=== PATIENT | male | born 1955 | race Caucasian/White ===

== ENCOUNTER → 2018-02-10 09:34 | Outpatient (CLI) | payer MEDICARE, SELFPAY ==
[2018-02-10 11:00] LABS: PSA,Total- Diagnostic 6.26 ng/mL (0.0-4.0)
== END ==
PROVIDERS: Family Provider Family Medicine; PCP Family Medicine; Visit Provider Urology
DX: N40.0 Benign prostatic hyperplasia without lower urinary tract symptoms (principal); E29.1 Testicular hypofunction
CPT/HCPCS: 36415; 84153; 84403

== ENCOUNTER → 2018-08-11 09:45 | Outpatient (CLI) | payer MEDICARE, SELFPAY ==
[2018-08-11 10:49] LABS: PSA,Total- Diagnostic 5.75 ng/mL (0.0-4.0)
== END ==
PROVIDERS: Family Provider Family Medicine; PCP Family Medicine; Referring Provider Urology; Visit Provider Urology
DX: R97.20 Elevated prostate specific antigen [PSA] (principal)
CPT/HCPCS: 36415; 84153

== ENCOUNTER → 2019-08-31 10:26 | Outpatient (CLI) | payer MEDICARE, SELFPAY ==
[2019-09-04 17:40] LABS: Testosterone, % Free 4.63 % (1.50-4.20); Testosterone, Total > 1500 ng/dL (264-916)
== END ==
LOC: LAB.FUTURE 10:28 → LAB 09-01 06:01
PROVIDERS: Family Provider Family Medicine; PCP Family Medicine; Referring Provider Urology; Visit Provider Urology
DX: E29.1 Testicular hypofunction (principal)
CPT/HCPCS: 36415; 84402; 84403

== ENCOUNTER → 2019-10-07 07:38 | Outpatient (CLI) | payer MEDICARE, SELFPAY | LOC: LAB.FUTURE 07:40 → LAB 07:42 | PROVIDERS: PCP Family Medicine; Referring Provider Urology; Visit Provider Urology | DX: E29.1 Testicular hypofunction (principal) | CPT/HCPCS: 36415; 84403 ==

== ENCOUNTER → 2020-09-04 11:55 | Outpatient (CLI) | payer MEDICARE, SELFPAY ==
[2020-09-04 12:53] LABS: PSA,Total- Diagnostic 6.25 ng/mL (0.0-4.0)
== END ==
PROVIDERS: PCP Family Medicine; Referring Provider Nurse Practitioner Adult Health; Visit Provider Nurse Practitioner Adult Health
DX: E29.1 Testicular hypofunction (principal); R97.20 Elevated prostate specific antigen [PSA]
CPT/HCPCS: 36415; 84153; 84403

== ENCOUNTER → 2021-03-05 08:43 | Outpatient (CLI) | payer MEDICARE, SELFPAY ==
[2021-03-05 10:09] LABS: PSA,Total- Diagnostic 6.52 ng/mL (0.0-4.0)
== END ==
PROVIDERS: Referring Provider Nurse Practitioner Adult Health; Visit Provider Nurse Practitioner Adult Health
DX: R97.20 Elevated prostate specific antigen [PSA] (principal)
CPT/HCPCS: 36415; 84153

== ENCOUNTER → 2021-03-19 07:59 | Outpatient (CLI) | payer MEDICARE, SELFPAY ==
--- NOTE | 2021-03-19 08:16 | MRI_ITS ---
HISTORY: ELEVATED PSA EXAMINATION: MR Prostate WO/W Contrast TECHNIQUE: Multiplanar and multisequence MR images of the pelvis were obtained with prostate protocol. Triplane axial T2, axial T1 pre-and post single phase IV contrast the small field of view about the prostate. Whole pelvic axial and sagittal T1 post randell, axial T1, axial T2, and axial diffusion with ADC imaging obtained. IV Contrast dosage and agent: 15 cc dotarem IV COMPARISON: None FINDINGS: Prostate: 5.4 x 5.7 x 5.0 cm (80 mL) Central gland: Enlarged with diffuse heterogeneous T2 signal without evidence of discrete hypointense T2 mass. Diffusion and postgadolinium imaging are unremarkable for central gland expected heterogeneity Peripheral zone: Diffuse heterogeneous T2 signal without discrete hypointense mass. Homogeneous abnormal diffusion signal. No focal suspicious abnormal enhancement. Unremarkable seminal vesicles. Retroprostatic angles are unremarkable. Pelvis: Bladder is unremarkable. Imaged portions of the bowel are normal in appearance. No adenopathy. No free fluid. Musculoskeletal: No acute osseous finding. The superficial soft tissues are unremarkable. MRI/Pelvis W/WO Contrast IMPRESSION: Enlarged prostate central gland compatible with benign prostatic hypertrophy. No suspicious findings for malignancy, PI-RADS 1. Recommend clinical PSA follow-up with MRI as clinically indicated. at 2211 Reported and signed by: Norris Bailon MD Electronically Signed: Norris Bailon MD at 10:30 EDT Tel , Service support ,
[2021-03-19 08:30] LABS: CREATININE FINGERSTICK 0.9 mg/dL (0.70-1.30); EGFR FINGERSTICK > 60.0000 mL/min (>60)
== END ==
PROVIDERS: Referring Provider Nurse Practitioner Adult Health; Visit Provider Nurse Practitioner Adult Health
DX: R97.20 Elevated prostate specific antigen [PSA] (principal)
CPT/HCPCS: 72197; A9575

== ENCOUNTER → 2021-05-02 10:38 | Outpatient (CLI) | payer OTHER, MEDICARE, SELFPAY ==
--- NOTE | 2021-05-02 10:43 | MRI_ITS ---
History: SPRAIN, DISC DEGEN, DISC DISPLACMENT Technique: T1 and T2 MR imaging of the lumbar spine performed without contrast enhancement in axial and sagittal planes. Comparison: October 26, 2012 Findings: Multilevel disc space narrowing again noted somewhat sparing L2-3 and L3-4 disc. Alignment of the lumbar vertebral bodies is normal. Conus medullaris and cauda equina are normal. Paraspinal soft tissues are normal. L1-2: No disc protrusion. Normal caliber spinal canal and neural foramina. L2-3: No disc protrusion. Normal caliber spinal canal and neural foramina. L3-4: No disc protrusion. Normal caliber spinal canal and neural foramina. L4-5: Prominent disc space narrowing. Disc osteophyte complex causes narrowing of the neural foramina. No significant impingement on the spinal canal. L5-S1: Bilateral neural foraminal narrowing related to disc osteophyte complex and facet arthropathy. No impingement on the spinal canal. IMPRESSION: Multilevel disc degeneration most prominent at L4-5 and L5-S1. No significant spinal stenosis. No foraminal narrowing bilaterally at L4-5 and L5-S1 related to to disc osteophyte prominence and facet arthropathy. at 1536 Reported and signed by: Jose Vera MD Electronically Signed: Jose Vera MD at 15:35 EDT Tel , Service support , MRI/Spine Lumbar (Routine)
== END ==
PROVIDERS: PCP Family Medicine; Referring Provider Nurse Practitioner Family; Visit Provider Nurse Practitioner Family
DX: M51.36 Other intervertebral disc degeneration, lumbar region (principal); M51.26 Other intervertebral disc displacement, lumbar region
CPT/HCPCS: 72148

== ENCOUNTER → 2021-06-05 08:59 | Outpatient (CLI) | payer MEDICARE, SELFPAY ==
--- NOTE | 2021-06-05 09:01 | EKG12_ITS ---
Test Reason : PREOP Blood Pressure : / mmHG Vent. Rate : 069 BPM Atrial Rate : 069 BPM P-R Int : 192 ms QRS Dur : 094 ms QT Int : 370 ms P-R-T Axes : 024 011 037 degrees QTc Int : 396 ms Normal sinus rhythm Incomplete right bundle branch block Confirmed by ANALI RG, ERICA ([id number]), editor magazine ALECIA VILLA ([id number]) on 06/06/2021 8:50:50 AM Referred By: TAWANNA Confirmed By:ERICA BRIONES MD
== END ==
PROVIDERS: PCP Family Medicine; Visit Provider Otolaryngology Otolaryngology/Facial Plastic Surgery
DX: Z01.818 Encounter for other preprocedural examination (principal); Z01.812 Encounter for preprocedural laboratory examination
CPT/HCPCS: 93005

== ENCOUNTER → 2022-03-18 | Outpatient (CLI) | payer MEDICARE, OTHER, SELFPAY ==
[2022-03-18 11:22] LABS: PSA,Total - Annual Screen 7.97 ng/mL (0.00-4.00)
== END | disposition home or self-care (01) ==
PROVIDERS: Visit Provider Registered Nurse
DX: N50.89 Other specified disorders of the male genital organs (principal); Z12.5 Encounter for screening for malignant neoplasm of prostate
CPT/HCPCS: 36415; 84153; 84403; G0103

== ENCOUNTER → 2022-04-26 | Outpatient (CLI) | payer MEDICARE, OTHER, SELFPAY ==
--- NOTE | 2022-04-26 16:16 | MRI_ITS ---
STUDY: MR PELVIS WITH/WITHOUT CONTRAST REASON FOR EXAM: Male, 66 years old. ELEVATED PSA TECHNIQUE: Standardized fat and water weighted pulse sequences were obtained through the pelvis with prostate protocol including small [id number] axial sagittal and coronal T2 sequences through the prostate, with diffusion, and single phase postcontrast axial and sagittal images. IV 17 CC CLARISCAN was administered for the postcontrast space. COMPARISON: March 19, 2021 MRI prostate. FINDINGS: Prostate: 6.8 x 5.9 x 5.3 cm (110mL) Central gland(Transition/central zone): Enlarged with diffuse heterogeneous T2 signal. There is 8 mm more focal T2 hypointensity with indistinct posterior margin along the left posterior margin of the transition zone with suggested bulge into peripheral zone potentially from slice selection and volume averaging, located at the mid body level, conspicuous only on axial imaging, without diffusion restriction or abnormal enhancement, reference axial T2 series 5 image 18-19. No other suspicious central gland lesion. Peripheral zone: Diffuse heterogeneous T2 signal without discrete hypointense mass other than central gland protruding lesion discussed above. Homogeneous abnormal diffusion signal. No focal suspicious abnormal enhancement. Unremarkable seminal vesicles. Retroprostatic angles are unremarkable. Pelvis: Bladder is unremarkable. Imaged portions of the bowel are normal in appearance. No uniquely suspicious or enlarging adenopathy. Few 5 mm and smaller lymph nodes along the left iliac chains are unchanged from March 19, 2021. No free fluid. Musculoskeletal: No acute osseous finding. The superficial soft tissues are unremarkable. MRI/Pelvis W/WO Contrast IMPRESSION: Left mid prostate body 8 mm hypointense T2 focus with indistinct margin along the border of the transition and peripheral zone, favored to be of transition zone origin, without corresponding diffusion restriction or abnormal enhancement: Overall PI-RADS 3 Enlarged prostate central gland compatible with benign prostatic hypertrophy, with interval enlargement compared with prior exam. No uniquely suspicious adenopathy. Left iliac chain 5 mm and smaller lymph nodes are unchanged from prior MRI. Recommendation: Correlate with risk assessment and clinical and laboratory changes. Consider earlier MRI follow-up. Electronically Signed: Norris Bailon MD at 9:24 EDT ,
[2022-04-26 16:41] LABS: CREATININE FINGERSTICK 0.9 mg/dL (0.70-1.30); EGFR FINGERSTICK > 60.0000 mL/min (>60)
== END | disposition home or self-care (01) ==
PROVIDERS: Visit Provider Urology
DX: R97.20 Elevated prostate specific antigen [PSA] (principal)
CPT/HCPCS: 72197; A9575

== ENCOUNTER → 2022-05-02 | Outpatient (CLI) | payer MEDICARE, OTHER, SELFPAY ==
--- NOTE | 2022-05-02 08:00 | PROSBIL_PTH ---
PATIENT: GLORIA OBSS Jr. LOC: [facility] U#:[id number] AGE/SX: 66/M ROOM: RE05/02/[address]: Dr. Juancarlos Scott MD : 1955 BED: DIS: 05/02/2022 SPEC #: [id number] RECD: 05/02/22 16:00 STATUS: NICHO KIMMY #: [id number] MEGHANA: 05/02/22 08:[address]: Juancarlos Scott DEPT: SURGICAL PATHOLOGY RECD BY: Lizzy Platt ENTERED: 05/03/22 09:51 SP TYPE: PROST BX SONAM DR: ADOLFO Rowley Tissues: A - PROSTATE RIGHT B - PROSTATE RIGHT C - PROSTATE RIGHT D - PROSTATE LEFT E - PROSTATE LEFT F - PROSTATE LEFT Procedures: PROSTATE BX HEADER OPERATION: Prostate biopsy PRE-OP DIAGNOSIS: Elevated PSA TISSUE SUBMITTED: A - Right apex, B - Right mid, C - Right base, D - Left apex, E - Left mid, F - Left base MICROSCOPIC DIAGNOSIS A. Right prostate, apex, core biopsy: Prostatic tissue, negative for malignancy. B. Right prostate, mid, core biopsy: Prostatic tissue, negative for malignancy. C. Right prostate, base, core biopsy: Prostatic tissue, negative for malignancy. D. Left prostate, apex, core biopsy: Prostatic tissue, negative for malignancy. Focal chronic inflammation. E. Left prostate, mid, core biopsy: Prostatic tissue, negative for malignancy. Focal chronic inflammation. F. Left prostate, base, core biopsy: Prostatic tissue, negative for malignancy. Focal chronic inflammation. SJ:marlene 05/06/2022 MICROSCOPIC DESCRIPTION Slides are reviewed. GROSS DESCRIPTION A - Received is one container designated prostate, right apex. The specimen consists of one elongated fragment of light pinto-white soft tissue measuring 1.8 cm in length and 0.1 cm in diameter. The specimen is totally submitted in one cassette. B - Received is one container designated prostate, right mid. The specimen consists of one elongated fragment of light pinto-white soft tissue measuring 2.3 cm in length and 0.1 cm in diameter. The specimen is totally submitted in one cassette. C - Received is one container designated prostate, right base. The specimen consists of one elongated fragment of light pinto-white soft tissue measuring 1.8 cm in length and 0.1 cm in diameter. The specimen is totally submitted in one cassette. D - Received is one container designated prostate, left apex. The specimen consists of two elongated fragments of light pinto-white soft tissue measuring 1.6 and 2.5 cm in length and 0.1 cm in diameter. The specimen is totally submitted in one cassette. E - Received is one container designated prostate, left mid. The specimen consists of two elongated fragments of light pinto-white soft tissue measuring 1.5 and 2.2 cm in length and 0.1 cm in diameter. The specimen is totally submitted in one cassette. F - Received is one container designated prostate, left base. The specimen consists of two elongated fragments of light pinto-white soft tissue measuring 1.5 and 2 cm in length and 0.1 cm in diameter. The specimen is totally submitted in one cassette. / SJ:rg 05/03/2022 TC:3 CPT: G0146
== END | disposition home or self-care (01) ==
LOC: LABSPEC 16:19
PROVIDERS: Visit Provider Urology
DX: R97.20 Elevated prostate specific antigen [PSA] (principal)
CPT/HCPCS: 88305; G0416

== ENCOUNTER → 2022-11-12 | Outpatient (CLI) | payer MEDICARE, OTHER, SELFPAY ==
[2022-11-12 10:08] LABS: PSA,Total- Diagnostic 8.79 ng/mL (0.0-4.0)
== END | disposition home or self-care (01) ==
LOC: LAB 08:53
PROVIDERS: Referring Provider Urology; Visit Provider Urology
DX: R97.20 Elevated prostate specific antigen [PSA] (principal)
CPT/HCPCS: 36415; 84153

== ENCOUNTER → 2024-05-27 | Outpatient (CLI) | payer MEDICARE, OTHER, SELFPAY ==
[2024-05-27 10:47] LABS: PSA,Total- Diagnostic 9.57 ng/mL (0.0-4.0)
== END | disposition home or self-care (01) ==
LOC: LAB 09:27
PROVIDERS: Referring Provider Urology; Visit Provider Urology
DX: N40.0 Benign prostatic hyperplasia without lower urinary tract symptoms (principal)
CPT/HCPCS: 36415; 84153

== ENCOUNTER → 2024-06-25 | Outpatient (CLI) | payer MEDICARE, OTHER, SELFPAY ==
--- NOTE | 2024-06-25 07:44 | MRI_ITS ---
STUDY: MR PROSTATE GLAND/ PELVIS WITH T WITHOUT CONTRAST REASON FOR EXAM: Male, 68 years old. ELEVATED PSA 9.57 TECHNIQUE: Standardized fat and water weighted pulse sequences were obtained in all 3 orthogonal planes, pre-and post contrast administration. IV 17 cc clariscan was administered for the contrast portion of the examination. COMPARISON: MRI of the prostate gland dated April 26, 2022. FINDINGS: Prostate gland volume/size: 6.27 x 6.84 x 6.14 cm which is mildly to moderately enlarged. Anterior fibromuscular stroma: Normal Peripheral zone: A chain of small hypointense nodule measuring 2.04 cm in diameter is present in the posterior midline aspect of the right peripheral zone as seen on image 27/40 series 5, however there is no focal enhancement or diffusion weighted signal abnormality in these regions indicate neoplasm. Redemonstration of a small to moderate-sized hypointense fibrotic appearing nodule located in the left Central zone crossing the border into the peripheral zone with negative diffusion and ADC signal as well as no enhancement on the postcontrast study, see image 30/40 series 12. This is most consistent with focal fibrosis or nodular hyperplasia. Central zone: Diffusely heterogeneous and nodular with intermediate to low signal parenchyma replacing the normal central gland parenchyma consistent with BPH. Diffuse postcontrast enhancement is symmetric. Multiple small intervening parenchymal cysts are also scattered throughout the tissue. Transitional zone: Diffusely heterogeneous and nodular with intermediate to low signal parenchyma replacing the normal transitional gland parenchyma consistent with BPH. Diffuse postcontrast enhancement is symmetric. Prostate capsule: intact Seminal vesicles: Normal bilaterally. Pelvic sidewall lymphadenopathy: No lymphadenopathy is present. Bony structures: No marrow edema or lytic or blastic lesions or enhancing lesions of the bony structures. Normal urinary bladder. Normal visualized small intestine. There are multiple colonic diverticula of the sigmoid colon consistent with chronic diverticulosis. There is no pelvic fluid. There is no pelvic mass lesion or lymphadenopathy. Normal abdominal wall. MRI/Pelvis W/WO Contrast IMPRESSION: 1. Peripheral zone: A chain of small hypointense nodule measuring 2.04 cm in diameter is present in the posterior midline aspect of the right peripheral zone as seen on image 27/40 series 5, however there is no focal enhancement or diffusion weighted signal abnormality in these regions indicate neoplasm. 2. Redemonstration of a small to moderate-sized hypointense fibrotic appearing nodule located in the left Central zone crossing the border into the peripheral zone with negative diffusion and ADC signal as well as no enhancement on the postcontrast study, see image 30/40 series 12. This is most consistent with focal fibrosis or nodular hyperplasia. 3. PI-RADS 2: low (clinically significant cancer is unlikely to be present) 4. Targeted image guided biopsy of nodules or air of interest can be performed for definitive pathologic assessment of the tissue and diagnosis 5. Prostate PET/CT exam can also be performed to determine if there is viable malignant neoplasm in the prostate gland. Prostate MRI reference: 15-30% of prostate cancers can go undetected on Prostate MRI. Monitoring and assessment by Primary physician, Urology, and oncology service recommended and treated clnically. (Cancers ([place]). 2022Jul 16;15(18):5830. doi: [id number] Prostate Cancers Invisible on Multiparametric MRI: Pathologic Features in Correlation with Whole-Mount Prostatectomy Minnie Taveras 1,2,*, Sina Chance 3, Manuel Acosta 1,2, Doris Crowe 1,2, Arnold Diop 4, Doyle Davenport 5, Michelle Matthew 6, Moses Barkley 1,2, Maureen Pedro 1,2) Reference information: Normal prostate tissue Benign prostatic hypertrophy cancer/tumor - low signal peripheral , transitional, and central zones malignancy appears as bright on DWI and low signal on ADC map Prostate imaging-reporting and data system (PI-RADS) PI-RADS 1: very low (clinically significant cancer is highly unlikely to be present) PI-RADS 2: low (clinically significant cancer is unlikely to be present) PI-RADS 3: intermediate (the presence of clinically significant cancer is equivocal) PI-RADS 4: high (clinically significant cancer is likely to be present) PI-RADS 5: very high (clinically significant cancer is highly likely to be present) PI-RADS X: component of exam technically inadequate or not performed Prostate malignancy distribution: Peripheral zone: 70-80% Transitional zone: 10-20% Central zone: 5% or less Electronically Signed: Michele Andino MD at 15:30 EST ,
[2024-06-25 08:52] LABS: CREATININE FINGERSTICK < 1.0 mg/dL (0.70-1.30); EGFR FINGERSTICK > 60.0000 mL/min (>60)
== END | disposition home or self-care (01) ==
PROVIDERS: Referring Provider Urology; Visit Provider Urology
DX: Z01.812 Encounter for preprocedural laboratory examination (principal); R97.20 Elevated prostate specific antigen [PSA]
CPT/HCPCS: 72197; A9575

== ENCOUNTER → 2024-09-20 | Outpatient (CLI) | payer MEDICARE, OTHER, SELFPAY ==
[2024-09-24 09:08] LABS: Testosterone, % Free 2.03 % (1.50-4.20); Testosterone, Total 192 ng/dL (264-916)
== END | disposition home or self-care (01) ==
LOC: LAB 08:09
PROVIDERS: Referring Provider Urology; Visit Provider Urology
DX: E29.1 Testicular hypofunction (principal)
CPT/HCPCS: 36415; 84402; 84403

== ENCOUNTER → 2024-11-30 | Outpatient (CLI) | payer MEDICARE, OTHER, SELFPAY ==
[2024-11-30 10:51] LABS: PSA,Total- Diagnostic 8.79 ng/mL (0.00-4.00)
== END | disposition home or self-care (01) ==
LOC: LAB 08:58
PROVIDERS: Referring Provider Nurse Practitioner; Visit Provider Nurse Practitioner
DX: R97.20 Elevated prostate specific antigen [PSA] (principal)
CPT/HCPCS: 36415; 84153